=== PATIENT | male | born 1960 | race Caucasian/White ===

== ENCOUNTER 2018-05-31 23:57 | Emergency (ER) | payer OTHER ==
[2018-06-01] MEDS ORDERED: METHYLPREDNISOLONE PF 125MG/VIAL IVP ONE
[2018-06-01] MEDS ORDERED: DIPHENHYDRAMINE HCL 50 MG/ML VIAL IVP ONE
--- NOTE | 2018-06-01 00:06 | Emergency Department Record ---
History of Present Illness - General Chief Complaint: Shortness of breath Stated Complaint: LANDEN Source: Patient Mode of Arrival: Ambulatory Limitations: No limitations - History of Present Illness Initial Comments: 57 yo male presents with shortness of breath the last three hours. He has a history of asthma. He has also developed a rash of the shoulder, neck, and facial area. He used his inhaler several times. No chest pain. No cough. His tongue feels a little "thick" as well. No nausea or vomiting. No diarrhea. No fever. He quit smoking about a year ago. MD Complaint: "Asthma attack", Shortness of breath -: Hour(s) (3) Severity: Moderate Quality: Other Consistency: Constant Improves With: Bronchodilators Worsens With: Other Known History Of: Other (History of asthma) Context: Other Associated Symptoms: Other (Rash and thick feeling in the tongue) Treatments Prior to Arrival: Bronchodilator - Related Data Previous Rx's Medication Instructions Recorded Prednisone [Prednisone 20Mg] 20 mg PO BID #10 tab 06/01/18 Allergies Allergy/AdvReac Type Severity Reaction Status Date / Time No Known Allergies Allergy Unverified 04/25/18 08:47 Review of Systems Constitutional: Denies: Chills, Fever, Weakness Eyes: Denies: Eye discharge ENT: Reports: Other (tongue feels thick). Denies: Congestion, Throat pain Respiratory: Denies: Cough Cardiovascular: Denies: Chest pain, Palpitations, Syncope Endocrine: Denies: Fatigue Gastrointestinal: Denies: Abdominal pain, Diarrhea, Nausea, Vomiting Genitourinary: Denies: Dysuria, Frequency Musculoskeletal: Denies: Arthralgia, Back pain, Neck pain Skin: Denies: Bruising, Change in color, Rash Neurological: Denies: Confusion, Headache Psychiatric: Denies: Anxiety Hematological/Lymphatic: Denies: Easy bleeding, Easy bruising Physical Exam - General General Appearance: Alert, Oriented x3, Cooperative, No acute distress Limitations: No limitations - Head Head exam: Atraumatic, Normal inspection Course - Reevaluation(s) Reevaluation #1: EKG 00:02 NSR rate is 88, intervals normal, [place] L, ST normal, poor R wave. 06/01/18 00:39 The labs were reviewed No acute changes on the CBC or CMP The D-Dimer is negative On recheck the patient was steadily improving after the IV medications The rash of the face, chest, shoulders was significantly improved. The rash is about 50% better. His tongue swelling feeling is much improved 06/01/18 01:50 The rash has completely resolved. He remains asymptomatic and very comfortable. His lips and tongue remained normal during the ED stay We discussed home care, reasons to return to the ED and follow up with his PCP He will have a ride home. Medical Decision Making - Lab Data Result diagrams: 06/01/18 00:03 06/01/18 00:03 Disposition Disposition: Discharge Clinical Impression: Allergic reaction, Hives Disposition: Home, Self-Care Condition: (1) Good Instructions: Urticaria (ED) Additional Instructions: You may take Benadryl if the rash returns Continue the Prednisone for the next 5 days Call your doctor for close follow up of this ER visit Return if you have any return of symptoms Prescriptions: Prednisone [Prednisone 20Mg] 20 mg PO BID #10 tab Forms: Patient Portal Access Time of Disposition: 01:52 Quality - Quality Measures Quality Measures: N/A - Blood Pressure Screening Does Patient Have Any of the Following: No Blood Pressure Classification: Pre-Hypertensive BP Reading Systolic Measurement: 120 Diastolic Measurement: 87 Screening for High Blood Pressure: < Pre-Hypertensive BP, F/U Documented > [ [id number]] Pre-Hypertensive Follow-up Interventions: Referral to alternative/primary care provider.
[2018-06-01 00:10] LABS: BASO % 0.7 % (0-6); EOS % 6.7 % (0-6); GRAN % 47.1 % (47-80); HEMATOCRIT 48.7 % (42.0-52.0); HEMOGLOBIN 16.4 gm/dl (14.0-18.0); LYMPH % 35.4 % (16-45); MEAN CELL VOLUME 93.8 fl (81-97); MEAN CORPUSCULAR HEMOGLOBIN 31.6 pg (27-33); MEAN CORPUSCULAR HGB CONC 33.7 g/dl (32-36); MEAN PLATELET VOLUME 10.1 fl (7.4-10.4); MONO % 10.1 % (0-9); PLATELET COUNT 277 K/uL (130-400); RED BLOOD COUNT 5.19 M/uL (4.40-5.70); WHITE BLOOD COUNT W/O DIFF 9.2 K/uL (4.2-12.2)
[2018-06-01 00:18] LABS: BLOOD UREA NITROGEN 9 mg/dL (6-20); CREATININE 0.7 mg/dL (0.7-1.2); EST GLOMERULAR FILTRATION RATE > 60 mL/min
[2018-06-01 00:21] LABS: GLUCOSE,RANDOM 113 mg/dL (74-109)
--- NOTE | 2018-06-02 12:48 | RADIOLOGY REPORT ---
EXAM: CHEST, TWO VIEWS HISTORY: DIFFICULTY IN BREATHING. TECHNIQUE: Frontal and lateral views of the chest were performed. Comparison: 04/25/18. FINDINGS: The heart size is normal. The lung borja are clear. No infiltrate or pleural effusion. The osseous structures are normal. IMPRESSION: NEGATIVE CHEST EXAMINATION. JOB NUMBER: [id number] MTDD
== END 2018-06-01 02:10 | disposition home or self-care (01) ==
LOC: ER 23:57
DX: L50.0 Allergic urticaria (principal); R06.02 Shortness of breath; R22.0 Localized swelling, mass and lump, head; Z87.891 Personal history of nicotine dependence
CPT/HCPCS: 71046; 80048; 85025; 85379; 93005; 93010; 96374; 96375; 99283; 99284; J1200; J2930

== ENCOUNTER 2018-09-05 09:59 | Day surgery (SDC) | payer OTHER ==
[2018-09-05] MEDS ORDERED: LIDOCAINE 2% MDV (20MG/ML) 20ML VIAL IV ONE (10:00)
[2018-09-05] MEDS ORDERED: MIDAZOLAM HCL 2MG/2ML VIAL IV ONE (10:00)
[2018-09-05] MEDS ORDERED: PROPOFOL 10 MG/ML VIAL IV ONE (10:00)
--- NOTE | 2018-09-08 09:30 | Operative Note ---
DATE OF SURGERY: 09/05/2018 SURGEON: Radha Saavedra MD OPERATION: COLONOSCOPY. INDICATIONS: This is a 58-year-old male with family history of colon polyps who presented for screening colonoscopy. POSTOPERATIVE DIAGNOSES: 1. A 2 cm flat ascending colon polypoid lesion, status post snare polypectomy with hemoclip application. 2. Three 6-8 mm sigmoid colon polyps, status post snare polypectomy. 3. Two 5-6 mm sessile polyps in the rectum that were removed by cold snare. 4. Otherwise normal colon and terminal ileal mucosa. ANESTHESIA: Sedation is per Anesthesia. Pulse oximetry was monitored throughout the procedure to maintain O2 saturation of 90% or greater. Supplemental oxygen was administered via nasal cannula. Cardiac and vital signs were monitored throughout the duration of the procedure, and they were stable. The procedure of colonoscopy and risks and alternatives of the procedure, including the risk of bleeding and perforation, among others, were explained to the patient who voiced understanding and agreed to have the procedure done. Physical examination was performed, and the patient was found stable for sedation. PROCEDURE: The patient was placed in the left lateral position. Sedation was initiated. A digital rectal exam was performed and showed some mild external hemorrhoids with no palpable rectal masses. An Olympus PCF-180AL colonoscope was then inserted into the rectum under direct visualization. It was advanced to the cecum without difficulty. The ileocecal valve and appendiceal orifice were identified and photographed. The colonic mucosa was carefully examined upon introduction of the colonoscope. In the sigmoid colon was an 8 mm sessile polyp that was noted and was removed by snare cautery. There were 2 adjacent 6 mm polyps that were removed by cold snare. In the ascending colon was a flat polypoid lesion that was noted about 2 cm in size. This was snared in piecemeal fashion with cautery and 1 hemoclip was applied to close the wound. The rest of the ascending colon and cecal mucosa appeared normal. The terminal ileal mucosa was intubated and it was inspected for about 10 cm and it appeared normal. The colonoscope was then withdrawn while carefully examining the colonic mucosal surfaces. No other lesions were noted. In the rectum, upon retroflexion, two 5- 6 mm sessile polyps were noted and were removed by cold snare. There were no other lesions noted. The colonoscope was then withdrawn and the procedure was terminated. The patient tolerated the procedure well without any immediate complications. The patient remained with stable vital signs and was transferred to the recovery room. RECOMMENDATIONS: 1. The patient should be on a low-residue diet for 2 weeks and thereafter can be on a high-fiber diet. 2. The patient is to avoid aspirin or aspirin-like medications. 3. The patient is to have a repeat colonoscopy for surveillance in 3 years. Thank you for allowing me to participate in the care of your patient. CC: ASHLEY Swain
== END 2018-09-05 11:55 | disposition home or self-care (01) ==
LOC: HOP 09:59
PROVIDERS: ATTEND Internal Medicine Gastroenterology
DX: Z12.11 Encounter for screening for malignant neoplasm of colon (principal); Z83.71 Family history of colonic polyps; D12.2 Benign neoplasm of ascending colon; D12.5 Benign neoplasm of sigmoid colon; D12.8 Benign neoplasm of rectum; J45.909 Unspecified asthma, uncomplicated